=== PATIENT | female | born 2000 | race Caucasian/White ===

== ENCOUNTER 2024-12-19 04:11 | Emergency (ER) | payer MEDICAID, SELFPAY ==
[2024-12-19 04:14] VITALS: BMI 31.6
[2024-12-19 04:26] VITALS: BP 125/83; PULSE 141; RESP 20; TEMP 36.8; O2SAT 99
--- NOTE | 2024-12-19 04:33 | PD.EDRME ---
Rapid Medical Screening Exam RME Arrival date/time: 12/19/24 04:11 24-year-old female approximately 33 weeks presents emergency department complaining of generalized hives after taking new blood pressure medication metoprolol 25 mg yesterday at 10 PM. Chief Complaint: Allergic Reaction Vital signs: Vital Signs Temperature 98.2 F 12/19/24 04:26 Pulse Rate 141 H 12/19/24 04:26 Respiratory Rate 20 12/19/24 04:26 Blood Pressure 125/83 12/19/24 04:26 Pulse Oximetry (%) 99 12/19/24 04:26 Vital signs reviewed by provider: Yes
[2024-12-19] MEDS: FAMOTIDINE 20 MG TABLET 40 MG PO (04:52)
[2024-12-19] MEDS: DiphenhydrAMINE 25 MG CAPSULE 50 MG PO (04:52)
[2024-12-19 04:53] VITALS: BP 131/95; PULSE 131; RESP 16; O2SAT 98
--- NOTE | 2024-12-19 05:09 | PC.NURSE ---
Called OB and requested an NST per Dr. Blanco.
--- NOTE | 2024-12-19 05:19 | PD.EDALLER ---
ED Allergic Reaction RME/HPI General Chief complaint: Allergic Reaction Stated complaint: hives after new med metoprolol Time Seen by Provider: 12/19/24 05:08 Source: patient Arrival date/time: 12/19/24 04:11 Mode of arrival: ambulatory Limitations: no limitations RME / HPI RME / HPI narrative: 12/19/24 04:11 24-year-old female approximately 33 weeks presents emergency department complaining of generalized hives after taking new blood pressure medication metoprolol 25 mg yesterday at [address] Blanco?s Main ED Evaluation: 24-year-old female, approximately 33 weeks , presents to the Emergency Department for an allergic reaction. The reaction occurred after taking a new medication, metoprolol, around 11 PM. She reports developing an itchy rash and hives approximately one hour after administration. The patient denies any other complaints. Related Data Home Medications ?Medication ?Instructions ?Recorded ?Confirmed bcnynyaz-hpt-As-FA 1 mg 1 tab PO QDAY 01/02/22 02/20/23 tablet ferrous sulfate 325 mg (65 mg mg 02/19/23 iron) tablet (FeroSul) Previous Rx's ?Medication ?Instructions ?Recorded ibuprofen 600 mg tablet 600 mg PO Q6H PRN pain #30 tabs 02/21/23 epinephrine 0.3 mg/0.3 mL 0.3 ml subcut .once PRN 12/19/24 injection, auto-injector (EpiPen hypersensitivity reaction #2 ea 2-[place]) famotidine 20 mg tablet 20 mg PO BID #10 tabs 12/19/24 prednisone 50 mg tablet 50 mg PO QDAY #5 tabs 12/19/24 Allergies Allergy/AdvReac Type Severity Reaction Status Date / Time alisa Allergy Intermediate Hives Verified 12/19/24 04:20 banana Allergy Mild Gastrointestinal Verified 02/19/23 09:19 Upset mon Allergy Mild Gastrointestinal Verified 02/19/23 09:19 Upset Review of Systems Review of Systems Systems Reviewed: All systems reviewed, normal except as documented ED Exam Narrative Physical exam: GENERAL: In general the patient is awake, interactive, in an emergency department gurney. HEAD/EYES/EARS/NOSE/THROAT: normo-cephalic, atraumatic, mucus membranes are moist. No cervical tenderness palpation midline. Supple neck. Uvula midline, no swelling noted. CARDIOVASCULAR: tachycardic, no murmurs, heart sounds are not distant, strong pulses in all four extremities that are equal and symmetric bilateral upper and lower extremities, normal capillary refill. CHEST/PULMONARY: normal chest rise and fall, good air movement, clear to auscultation bilaterally, normal inspiratory to expiratory ratios without evidence of respiratory distress. ABDOMEN: gravid, soft, not tender, no masses appreciated BACK: normal range of motion without pain. NEUROLOGICAL: cranio-facial features are symmetric, moves all four extremities equally without obvious limitations or weakness. EXTREMITY: no tenderness to palpation over the long bones or large joints of the bilateral upper and lower extremities, no joint swelling, no joint erythema, no signs of trauma, no unilateral leg swelling and no peripheral edema. SKIN: warm, dry, well-perfused, no jaundice, no telangiectasias or petechia. Positive for itchy rash and hives to all extremities. PSYCH: calm, cooperative, no evidence of psychosis or agitation General Limitations: Present no limitations Course Quality Measures none Orders Category Date Time Status Place in Observation Status Routine Admission 12/19/24 05:16 Active Continuous Monitoring Routine Care 12/19/24 05:29 Ordered EKG (ED ONLY) *Do not use* NOW Care 12/19/24 04:33 Completed Non-Stress Test Now Care 12/19/24 05:29 Active Sterile Vaginal Exam PRN Care 12/19/24 05:30 Ordered EKG (ED Only) Stat Exams 12/19/24 04:33 Ordered CBC Stat Lab 12/19/24 04:50 Completed CMP [Comprehensive Metabolic Panel] Stat Lab 12/19/24 04:50 Completed Urinalysis, C/S if Indicated Stat Lab 12/19/24 06:54 Received DiphenhydrAMINE [Benadryl] Med 12/19/24 04:38 Discontinued 50 mg PO X1 ONE Famotidine [Pepcid] Med 12/19/24 04:38 Discontinued 40 mg PO X1 ONE MethylPREDNISolone.* [SoluMEDROL Inj] Med 12/19/24 05:34 Discontinued 125 mg IVP X1 ONE Sodium Chloride 0.9% 1000 ml [Ns] 1,000 ml Med 12/19/24 05:35 Discontinued IV 999 mls/hr Reevaluation(s) Reevaluation #1: 100 HR Time: 05:00 Reevaluation #2: Rash resolved. No Time: 07:53 Vital Signs Vital signs: Vital Signs Temperature 98.2 F 12/19/24 04:26 Pulse Rate 141 H 12/19/24 04:26 Respiratory Rate 20 12/19/24 04:26 Blood Pressure 125/83 12/19/24 04:26 Pulse Oximetry (%) 99 12/19/24 04:26 Allergic Reaction MDM Narrative MDM Narrative:: 0600 Care signed out to [facility] provider. Past medical, surgical, social and family history reviewed. Vitals and home medications reviewed. Results and treatment plan discussed. They will assume the care of the patient at this time and will follow the patient, pending workup, ED observation of her hives and final disposition to home. Scribe Attestation: Breonna Granados, am scribing for and in the presence of Dr. Blanco. Provider Notation: Although this document has been carefully reviewed, there may still be some phonetic and other typographical errors. These errors are purely grammatical due to imperfections in the software program and should not be construed in any way to compromise the substance of the patient's medical care during this visit. Patient data External records reviewed:: [facility] previous records Clinical information provided by:: patient Social determinants that could affect healthcare access:: none Patient has the following chronic illnesses:: see PMH How is presenting disease/condition affected by chronic disease/condition?: uneffected by Evaluation data The following diagnostics were reviewed and interpreted by me:: lab results Lab and/or radiology exams considered but not ordered:: none Interpretation Summary: workup pending Medications / Prescriptions Medications or Prescriptions considered but not ordered:: none Medication administrations:: Medication Administration History Discontinued Medications Diphenhydramine HCl (Diphenhydramine 25 Mg Capsule) 50 mg PO X1 ONE Stop: 12/19/24 04:39 Last Admin: 12/19/24 04:52 Dose: 50 mg Documented By: KG Famotidine (Famotidine 20 Mg Tablet) 40 mg PO X1 ONE Stop: 12/19/24 04:39 Last Admin: 12/19/24 04:52 Dose: 40 mg Documented By: KG Sodium Chloride (Ns) 1,000 mls @ 999 mls/hr IV .Q1H1M ONE Stop: 12/19/24 06:35 Last Infusion: 12/19/24 06:43 Dose: Infused Documented By: Admin: 12/19/24 05:42 Dose: 999 mls/hr Documented By: KG Methylprednisolone Sodium Succinate (Methylprednisolone Sod Succ 62.5 Mg/Ml 2ml Vial) 125 mg IVP X1 ONE Stop: 12/19/24 05:35 Last Admin: 12/19/24 05:41 Dose: 125 mg Documented By: KG as above Consultations Consultation(s) initiated? (list below): Yes Consultation #1 (Physician, Specialty, Details): OB came and seen the patient who cleared her Time: 05:00 Consultation #2 (Physician, Specialty, Details): Case d/w Dr. Terrell, ob on-call, made aware of the patient?s HPI, PMHx, lab and/or radiology results. Treatment plan was discussed. Cardiology placed her on 12mg for tachycardic not HTN, advised to stop. [place] monitor is normal. Agreeable to discharge her home with OB outpatient follow-up. Time: 05:54 Diagnosis Differential Diagnosis allergic reaction: anaphylaxis, allergic reaction and urticaria Most likely diagnosis given after review of the tests above:: see clinical impression Admission Indicated Admission indicated?: not indicated Admission Request Was there a request for admission?: No Disposition Plan Disposition Plan: Discharge Discharge Attestation Discharge Attestation: The patient and all family members were given an opportunity to ask questions and understood the discharge instructions. Discharge instructions specifically effects, indications for sooner follow up or return to the emergency department, and the expected course of current diagnosis. Patient condition: Stable Discharge Plan Plan Patient Disposition: HOME (Self Care) Patient condition on transfer: Stable Prescriptions/Referrals Prescriptions/Med Rec: New prednisone 50 mg tablet 50 mg PO QDAY Qty: 5 0RF famotidine 20 mg tablet 20 mg PO BID Qty: 10 0RF epinephrine [EpiPen 2-[place]] 0.3 mg/0.3 mL auto-injector 0.3 ml subcut .once PRN (Reason: hypersensitivity reaction) Qty: 2 0RF No Action eoyoklln-ffh-Xz-FA 1 mg Tablet 1 tab PO QDAY ferrous sulfate [FeroSul] 325 mg (65 mg iron) tablet Patient Comments: TAKE ONE TABLET BY MOUTH WITH ORANGE JUICE EVERY DAY VITAMIN ibuprofen 600 mg tablet 600 mg PO Q6H PRN (Reason: pain) Qty: 30 0RF Referrals: No Primary/Family,Physician [Primary Care Provider] - In 1 week Problem List Clinical Impression: Allergic reaction, 32 weeks gestation of Patient/Caregiver Discharge Instructions Education Materials: Duyen Abdullahi, ED General Allergic Reactions, Prematurity Additional Instructions: 1. I discussed your case with Dr Terrell, at this time I want you to stop the metoprolol. Please call his office today so that you can get an appointment to see him tomorrow. 2. Stay hydrated with Pedialyte and Gatorade. 3. Today in the emergency department you had a [place] monitor which monitored the baby and you clear that. 4. If you are prescribed medications from the emergency department please take them as prescribed. If you feel like you need to use the EpiPen please call 911. Return to the emergency department for worsening symptoms, any swelling of your face, difficulty swallowing, you feel like you are having any abdominal cramping, or you have any other concerns. Print Language: Maltese Stand Alone Forms: Nickie Award Info., Patient Portal Info Letter
--- NOTE | 2024-12-19 05:19 | PC.NURSE ---
OB at the bedside for NST.
[2024-12-19 05:30] VITALS: BP 129/83; PULSE 100; RESP 18; RESP 99; TEMP 36.8
[2024-12-19] MEDS: MethylPREDNISolone SOD SUCC 62.5 MG/ML 2ML VIAL 125 MG IVP (05:41)
[2024-12-19] MEDS: SODIUM CHLORIDE 0.9% 1000 ML 1,000 ML 999 ML IV (05:42)
[2024-12-19 05:51] LABS: Basophils % (Auto) 0 % (0-2.5); Eosinophils # (Auto) 0.1 Thou/mm3 (0.0-0.5); Eosinophils % (Auto) 1 % (0-10); Immature Granulocytes % (Auto) 2 % (0-0); Immature Granulocytes Auto 0.23 Thou/mm3 (0.00-0.00); Lymphocytes # (Auto) 1.5 Thou/mm3 (1.0-4.8); Lymphocytes % (Auto) 11 % (10-50); Mean Corpuscular HGB Conc 32.4 g/dl (31.0-37.0); Mean Corpuscular Hemoglobin 27.2 pg (25.0-35.0); Mean Corpuscular Volume 84 fL (80-100); Monocytes % (Auto) 8 % (0-12); Neutrophils % (Auto) 78 % (37-80); Nucleated Red Blood Cell % 0 /100 WBC (0); Platelet Count 312 Thou/mm3 (140-440); RDW Standard Deviation 45.8 fL (36.4-46.3); Red Blood Count 4.05 Miln/mm3 (4.00-5.20); White Blood Count 12.9 Thou/mm3 (3.6-11.0)
[2024-12-19 05:58] VITALS: BP 120/76; PULSE 121; RESP 18; TEMP 36.4; O2SAT 100
--- NOTE | 2024-12-19 06:28 | PC.NURSE ---
Dr. Blanco at the bedside.
[2024-12-19 06:31] LABS: Alanine Aminotransferase < 7 U/L (10-49); Albumin, Serum 4.4 gm/dL (3.5-5.0); Albumin/Globulin Ratio 1.3 (1.2-2.2); Alkaline Phosphatase 154 U/L (46-116); Anion Gap 11 (7-16); Aspartate Amino Transferase 10 U/L (0-34); BUN/Creatinine Ratio 18 Ratio (12-20); Bilirubin,Total 0.5 mg/dL (0.3-1.2); Blood Urea Nitrogen 9 mg/dL (9-23); Calcium 8.6 mg/dL (8.3-10.6); Calcium (Corrected) 8.6 mg/dL (8.5-10.1); Chloride 103 mMol/L (98-107); Creatinine (Component) 0.5 mg/dL (0.6-1.3); Estimated Creatinine Clearance 186.5 mL/min (>60); Globulin 3.3 gm/dL (2.3-3.5); Glucose 88 mg/dL (74-106); Osmolality,Calculated 267 (275-295); Potassium 3.7 mMol/L (3.4-5.1); Sodium 135 mMol/L (136-145); Total Protein 7.7 gm/dL (5.7-8.2); eGFR > 60 See Note
[2024-12-19 06:45] VITALS: BP 121/73; PULSE 113; RESP 19; O2SAT 99
[2024-12-19 07:05] LABS: Collection Type, Urine Clean Catch
[2024-12-19 07:22] LABS: Bacteria,Urine 1+; Bilirubin,Urine Negative (Negative); Blood,Urine Negative (Negative); Clarity,Urine Turbid (Clear/Hazy); Color,Urine Yellow (Lt Yel-Yel); Glucose, Urine Negative (Negative); Ketones,Urine 1+ (Negative); Leukocyte Esterase,Urine Positive (Negative); Nitrite,Urine Negative (Negative); Protein,Urine 1+ (Neg - Trace); RBC,Urine 13 /hpf (0-3); Specific Gravity,Urine 1.028 (1.001-1.035); Squamous Epithelial Cell,Urine 9 /hpf (0-5); WBC,Urine 12 /hpf (0-5)
[2024-12-19 07:56] VITALS: BP 121/73; PULSE 110; RESP 19; TEMP 36.6; O2SAT 98
[2024-12-19 08:56] LABS: Culture Indicated,Urine Yes
== END 2024-12-19 09:11 | disposition home or self-care (01) ==
PROVIDERS: Emergency Provider Emergency Medicine
DX: O9A.213 Injury, poisoning and certain other consequences of external causes complicating pregnancy, third trimester (principal); T78.40XA Allergy, unspecified, initial encounter; Z3A.33 33 weeks gestation of pregnancy
CPT/HCPCS: 36415; 80053; 81001; 85025; 87086; 96360; 99284; J2919; J7030; A9270

== ENCOUNTER 2025-01-21 19:14 | Observation (INO) | payer MEDICAID, SELFPAY ==
[2025-01-21 19:26] VITALS: PULSE 88; O2SAT 99
[2025-01-21 19:27] VITALS: BP 132/88; PULSE 103
[2025-01-21 19:31] VITALS: BP 132/88; PULSE 98; RESP 100; RESP 16; TEMP 36.8; BMI 33.9
[2025-01-21 19:52] LABS: ROM Kit Lot # 578010271; ROM Swab Mixed By: RAWLT; Swb Mxed in Solvent 1 min? Yes
[2025-01-21 20:02] LABS: Rupture of Fetal Membranes Negative (Negative)
== END 2025-01-21 20:20 | disposition home or self-care (01) ==
PROVIDERS: Admitting Provider Specialist; Visit Provider Specialist
DX: Z34.83 Encounter for supervision of other normal pregnancy, third trimester (principal); Z3A.38 38 weeks gestation of pregnancy
CPT/HCPCS: 59025; 59899; 84112

== ENCOUNTER 2025-01-27 17:13 | Inpatient (IN) | payer MEDICAID, SELFPAY ==
--- NOTE | 2025-01-25 12:22 | ESHP_ITS ---
RE: TORSTEN BRYANT : 2000 DATE OF ADMISSION: 01/27/2025 HISTORY OF PRESENT ILLNESS: This is a 25-year-old 4, para 2-0-1-2 with due date of 02/03/2025 with an intrauterine at 39 weeks on 01/27/2025, who presents for induction of labor. The patient's was complicated by chronic hypertension. She is taking labetalol at 100 mg p.o. b.i.d. She has also had tachycardia intermittently throughout her and hypothyroidism for which she takes levothyroxine 50 mcg p.o. daily. The patient did try metoprolol for her tachycardia and was found to have an allergic reaction and sent her to the emergency room, therefore we have avoided metoprolol for her tachycardia and use labetalol instead as well as for management of her hypertension. ALLERGIES: METOPROLOL. MEDICATIONS: 1. Labetalol 100 mg 1 p.o. b.i.d. 2. Albuterol sulfate inhaler 2 puffs every 6 hours p.r.n. shortness of breath and wheezing. 3. Ferrous sulfate 325 mg 1 p.o. daily. 4. Levothyroxine 50 mcg 1 p.o. daily. 5. Aspirin 81 mg 1 p.o. daily. 6. vitamin 1 p.o. daily. PAST MEDICAL HISTORY: Chronic hypertension, asthma, hypothyroidism, iron deficiency anemia. OBSTETRIC HISTORY: In 2020, 6-week spontaneous AB, no D and C; in 2021, 40-week normal vaginal delivery, 7 pounds 4 ounce male, induction for gestational hypertension; in 02/2023, 38-week normal vaginal delivery, induction for hypertension. SOCIAL HISTORY: She denies any alcohol, drug use, or smoking. PAST SURGICAL HISTORY: Denies. REVIEW OF SYSTEMS: She denies any chest pain, palpitations, cough, fever, shortness of breath, or lower extremity pain. She denies any headache, change in vision, or right upper quadrant pain. PHYSICAL EXAMINATION: VITAL SIGNS: Blood pressure 143/79, heart rate 88, respirations 18, temperature 98.2, and weight 205 pounds. HEENT: Oropharynx and sclerae are clear. LUNGS: Clear to auscultation bilaterally. HEART: Regular rate and rhythm. ABDOMEN: Gravid, term size consistent with estimated weight of 7.5 pounds. PELVIC: See RN notes. EXTREMITIES: Nontender. SKIN: No gross rashes or lesions. NEUROLOGIC: No focal deficit. ASSESSMENT AND PLAN: Intrauterine at 39 weeks on 01/27/2025, chronic hypertension, intermittent tachycardia, hypothyroidism, iron deficiency anemia, induction of labor, anticipate spontaneous vaginal delivery. Informed consent was obtained. The patient has been aware of the risks, complications, alternatives, and benefits of the proposed procedure and she agrees. She is aware of the risk of operative vaginal delivery and delivery and she agrees with these modes of delivery if indicated. DT: 09:53:54 TT: 10:36:00 Ref: [id number] - TID: [id number] MTDD
[2025-01-27] VITALS (19 sets, daily range): BP systolic 126–144; BP diastolic 85–86; PULSE 98–148; RESP 20; TEMP 37–37.1; O2SAT 97–100; BMI 34.2
[2025-01-27 18:22] LABS: Basophils % (Auto) 0 % (0-2.5); Eosinophils # (Auto) 0.1 Thou/mm3 (0.0-0.5); Eosinophils % (Auto) 1 % (0-10); Hematocrit 33.1 % (36.0-46.0); Hemoglobin 10.5 g/dL (12.0-16.0); Immature Granulocytes % (Auto) 2 % (0-0); Immature Granulocytes Auto 0.29 Thou/mm3 (0.00-0.00); Lymphocytes # (Auto) 2.1 Thou/mm3 (1.0-4.8); Lymphocytes % (Auto) 17 % (10-50); Mean Corpuscular HGB Conc 31.7 g/dl (31.0-37.0); Mean Corpuscular Hemoglobin 25.7 pg (25.0-35.0); Mean Corpuscular Volume 81 fL (80-100); Monocytes # (Auto) 0.8 Thou/mm3 (0.0-0.8); Monocytes % (Auto) 6 % (0-12); Neutrophils % (Auto) 73 % (37-80); Nucleated Red Blood Cell % 0 /100 WBC (0); Platelet Count 253 Thou/mm3 (140-440); RDW Standard Deviation 45.5 fL (36.4-46.3); Red Blood Count 4.08 Miln/mm3 (4.00-5.20); White Blood Count 12.3 Thou/mm3 (3.6-11.0)
[2025-01-27 18:33] LABS: Fibrinogen 478 mg/dL (175-375); INR 0.9 (0.9-1.3); Partial Thromboplastin Time 26.1 Seconds (22.0-36.0); Prothrombin Time 10.4 Seconds (9.0-12.2)
[2025-01-27 18:43] LABS: Alanine Aminotransferase 9 U/L (10-49); Albumin, Serum 3.9 gm/dL (3.5-5.0); Albumin/Globulin Ratio 1.3 (1.2-2.2); Alkaline Phosphatase 195 U/L (46-116); Anion Gap 12 (7-16); Aspartate Amino Transferase 12 U/L (0-34); BUN/Creatinine Ratio 17 Ratio (12-20); Bilirubin,Total 0.4 mg/dL (0.3-1.2); Blood Urea Nitrogen 10 mg/dL (9-23); Calcium 8.8 mg/dL (8.3-10.6); Calcium (Corrected) 8.9 mg/dL (8.5-10.1); Carbon Dioxide 19.8 mMol/L (20.0-31.0); Chloride 104 mMol/L (98-107); Creatinine (Component) 0.6 mg/dL (0.6-1.3); Estimated Creatinine Clearance 160.4 mL/min (>60); Globulin 2.9 gm/dL (2.3-3.5); Glucose 81 mg/dL (74-106); Osmolality,Calculated 269 (275-295); Sodium 136 mMol/L (136-145); Total Protein 6.8 gm/dL (5.7-8.2); Uric Acid 3.7 mg/dL (3.1-7.8); eGFR > 60 See Note
[2025-01-27 18:48] LABS: Syphilis Nonreactive (Nonreactive)
[2025-01-27] MEDS: DINOPROSTONE 10 MG VAG.SUPP VAGINAL (19:22)
[2025-01-27 19:46] LABS: Collection Type, Urine Clean Catch
[2025-01-27 20:32] LABS: Bacteria,Urine 1+; Bilirubin,Urine Negative (Negative); Blood,Urine Trace (Negative); Clarity,Urine Turbid (Clear/Hazy); Color,Urine Yellow (Lt Yel-Yel); Glucose, Urine Negative (Negative); Ketones,Urine 1+ (Negative); Leukocyte Esterase,Urine Positive (Negative); Nitrite,Urine Negative (Negative); PH,Urine 5.5 (5.0-7.0); Protein,Urine Trace (Neg - Trace); RBC,Urine 22 /hpf (0-3); Squamous Epithelial Cell,Urine 6 /hpf (0-5); Urobilinogen,Urine Negative mg/dL (0.0-1.0); WBC,Urine 44 /hpf (0-5)
[2025-01-27 20:49] LABS: Amphetamine/Metham Scrn,Ur OB Negative (Negative); Benzoylecgonine Screen, Ur OB Negative (Negative); Opiate Screen,Urine OB Negative (Negative); THC Screen,Urine OB Negative (Negative)
[2025-01-28] VITALS (23 sets, daily range): BP systolic 109–143; BP diastolic 57–92; PULSE 77–112; RESP 17–20; TEMP 36.5–36.8; O2SAT 97–98
[2025-01-28] MEDS: LEVOTHYROXINE SODIUM 25 MCG TABLET 50 MCG PO (05:28)
[2025-01-28] MEDS: RINGERS LACTATED 1000 ML 1,000 ML 100 ML IV (05:45)
--- NOTE | 2025-01-28 05:52 | PD.LDPN ---
Documentation for date of: 01/28/25 OB Labor Progress Note Pain Control Comments: None Pelvic Exam Dilation (cm): 3 Effacement (%): 70 station: -2 Amniotic membrane status: Intact Comments: vtx per RN Contractions Contraction frequency: q 3 min Status Comments: Category 1 Assessment and Plan Comments: Anticpate Feels like not able to completely empty bladder. Voided 100 cc only. Bladder scan showed 250 cc retained urine. Urinary retention Plan straight cath x 1
[2025-01-28] MEDS: OXYTOCIN in NS 20 units 20 UNIT/1,000 ML BAG 125 UNIT IV (07:42)
[2025-01-28] MEDS: IBUPROFEN TAB 400 MG TABLET 800 MG PO ×2 (08:03→23:22)
[2025-01-28] MEDS: BENZO/LANO/ALOE (Dermoplast) 60 GM CAN 1 SPRAY TOP (08:04)
--- NOTE | 2025-01-28 08:05 | PD.LDDELS ---
Data ([facility]) Data Hx Section: No : 3 Para: 2 Term: 2 : 0 : 0 Delivery Data ([facility]) Labor Data ROM Date: 01/28/25 ROM Time: 06:20 Rupture Type: SROM Amniotic Fluid: Particulate Meconium Delivery Data EDC: 02/03/25 EDC calculated by:: LMP/early US confirmation Labor Onset Stage 1 Date: 01/28/25 Labor Onset Stage 1 Time: 06:20 Labor Onset Stage 2 Date: 01/28/25 Labor Onset Stage 2 Time: 07:34 Delivery Date: 01/28/25 Delivery Time: 07:39 Gestational age (weeks): 39 Gestational age (days): 1 Placenta Delivery Date: 01/28/25 Placenta Delivery Time: 07:42 Delivered by: John Terrell Delivery nurse: Romina Best Other staff at delivery: 2nd Nurse Other staff at delivery: 2nd Nurse Other staff at delivery: 2nd Nurse Other staff at delivery: Obdulia Maddox Other staff at delivery: Gaby Caruso Other staff at delivery: astoaEmery Delivery Method Delivery: Vaginal Delivery Type: Spontaneous Presentation: Vertex Position: OA Anesthesia Type Primary Anesthesia: None Placenta Placenta Delivery: Spontaneous Placenta Cultures Obtained: No Placenta Sent for Examination: No Cord Sample: Cord Blood Obtained, Cord Gases Arterial and Cord Gases Venous EBL Estimated blood loss (ml): 250 Umbilical Cord Nuchal Cord: x1 Additional Procedures None Complications Complications: None [place] Data ([facility]) [place] Data Gender: Female Weight Grams: 3410 1 Minute Total: 7 5 Minute Total: 9
--- NOTE | 2025-01-28 08:06 | ESDS_ITS ---
DS: Providers Provider Date of admission: 01/27/25 17:13 Primary care physician: Milo Faulkner MD Admitting Provider: John Terrell MD Attending Provider on Admission: John Terrell MD Attending Provider on DC: John Terrell MD Discharging Provider: John Terrell MD DS: Diagnosis Problem List Completed Was Problem List Reviewed/Reconciled?: Yes Summary/Hosp Course Time Spent with Patient Time attestation: Total time spent providing and/or coordinating discharge services: Exam Vital Signs Temp Pulse Resp BP Pulse Ox 97.8 F 84 19 127/75 98 01/28/25 01:19 01/28/25 07:58 01/28/25 01:19 01/28/25 07:58 01/27/25 19:28 Discharge Plan Plan Patient Disposition: HOME (Self Care) Patient condition on transfer: Stable Prescriptions/Referrals Prescriptions/Med Rec: New ibuprofen 600 mg tablet 600 mg PO Q6H PRN (Reason: fever or pain) Qty: 30 0RF nitrofurantoin monohyd/m-cryst [Macrobid] 100 mg capsule 100 mg PO Q12H 3 Days Qty: 6 0RF Rx Instructions: must administer with a meal/food Continued levothyroxine 50 mcg tablet Patient Comments: TAKE ONE TABLET BY MOUTH EVERY MORNING FOR THYROID Vitamin 27 mg iron- 800 mcg tablet Patient Comments: TAKE ONE TABLET BY MOUTH EVERY DAY VITAMIN epinephrine [EpiPen 2-[place]] 0.3 mg/0.3 mL auto-injector 0.3 ml subcut .once PRN (Reason: hypersensitivity reaction) Qty: 2 0RF ferrous sulfate [FeroSul] 325 mg (65 mg iron) tablet Patient Comments: TAKE ONE TABLET BY MOUTH WITH ORANGE JUICE EVERY DAY VITAMIN Discontinued aeibkbox-jfn-Rd-FA 1 mg Tablet 1 tab PO QDAY famotidine 20 mg tablet 20 mg PO BID Qty: 10 0RF ibuprofen 600 mg tablet 600 mg PO Q6H PRN (Reason: pain) Qty: 30 0RF Referrals: Milo Faulkner MD [Primary Care Provider] - Patient/Caregiver Discharge Instructions Discharge Activity: activity as tolerated Other Discharge Activity Instructions:: Follow up office 6 weeks Education Materials: After a Vaginal , Urinary Tract Infections in Women, Print Language: Mongolian Stand Alone Forms: Nickie Award Info., Patient Portal Info Letter Discharge Order Discharge Orders: Discharge (Routine); Ordered 01/29/25 Ordered By: John Terrell Planned Discharge Date 01/29/25
[2025-01-28] MEDS: cefTRIAXone 1,000 MG in SODIUM CHLORIDE 0.9% (Popper) 50 ML 100 MG IV (08:47)
[2025-01-28] MEDS: PRENATAL VITAMIN/FE FUM/FA TABLET 1 TAB PO (08:47)
[2025-01-28 14:23] LABS: Basophils % (Auto) 0 % (0-2.5); Eosinophils % (Auto) 0 % (0-10); Hematocrit 29.9 % (36.0-46.0); Hemoglobin 9.5 g/dL (12.0-16.0); Immature Granulocytes % (Auto) 1 % (0-0); Immature Granulocytes Auto 0.15 Thou/mm3 (0.00-0.00); Lymphocytes # (Auto) 1.9 Thou/mm3 (1.0-4.8); Lymphocytes % (Auto) 12 % (10-50); Mean Corpuscular HGB Conc 31.8 g/dl (31.0-37.0); Mean Corpuscular Hemoglobin 26.2 pg (25.0-35.0); Mean Corpuscular Volume 83 fL (80-100); Monocytes # (Auto) 1.3 Thou/mm3 (0.0-0.8); Monocytes % (Auto) 8 % (0-12); Neutrophils % (Auto) 79 % (37-80); Nucleated Red Blood Cell % 0 /100 WBC (0); Platelet Count 228 Thou/mm3 (140-440); RDW Standard Deviation 46.9 fL (36.4-46.3); Red Blood Count 3.62 Miln/mm3 (4.00-5.20); White Blood Count 16.4 Thou/mm3 (3.6-11.0)
[2025-01-29 04:01] VITALS: BP 136/81; PULSE 88; RESP 16; TEMP 36.4; O2SAT 98
[2025-01-29] MEDS: LEVOTHYROXINE SODIUM 25 MCG TABLET 50 MCG PO (05:00)
--- NOTE | 2025-01-29 08:16 | ESPR_ITS ---
RE: TORSTEN BRYANT : 2000 DATE OF SERVICE: 01/29/2025 SUBJECTIVE: day #1. The patient denies any problem or complaints. She is voiding. She is ambulating. She is tolerating diet. She is passing flatus. She denies any excessive vaginal bleeding. She denies any dizziness or lightheadedness. She denies any chest pain, palpitations, shortness of breath or lower extremity pain. She denies any flank pain. OBJECTIVE: Vital Signs: Blood pressure 136/81, heart rate 88, respirations 16, temperature 97.5, pulse oximetry is 98% on room air. Lungs: Clear to auscultation bilaterally. Heart: Regular rate and rhythm. Abdomen: Fundus is firm, nontender. Flank: No CVA tenderness. Extremities: Nontender. LABORATORY DATA: Hemoglobin pre-delivery is 10.5, post delivery is 9.5. ASSESSMENT: 1. day #1, status post spontaneous vaginal delivery. 2. Urinary tract infection. PLAN: Discharge home. Continue antibiotics for 3 days. Discharge instructions given. Follow up in the office in 6 weeks. DT: 07:36:38 TT: 08:15:00 Ref: [id number] - TID: [id number] [facility]
== END 2025-01-29 11:59 | disposition home or self-care (01) | DRG 560 ==
LOC: S4SX 01-28 08:01 → S4NX 01-28 09:55
PROVIDERS: Admitting Provider Specialist; PCP Pediatrics; Visit Provider Specialist
DX: O10.92 Unspecified pre-existing hypertension complicating childbirth (principal); Z3A.39 39 weeks gestation of pregnancy; Z37.0 Single live birth; O69.81X0 Labor and delivery complicated by cord around neck, without compression, not applicable or unspecified; O99.284 Endocrine, nutritional and metabolic diseases complicating childbirth; E03.9 Hypothyroidism, unspecified; O99.02 Anemia complicating childbirth; D50.9 Iron deficiency anemia, unspecified; O77.0 Labor and delivery complicated by meconium in amniotic fluid; O86.20 Urinary tract infection following delivery, unspecified; Z79.890 Hormone replacement therapy
CPT/HCPCS: 36415; 80053; 80307; 81001; 84550; 85025; 85384; 85610; 85730; 86780; 86850; 86900; 86901; J0696; J2590; J7050; J7120; A9270

== ENCOUNTER 2025-08-14 23:59 | Emergency (ER) | payer MEDICAID, SELFPAY ==
[2025-08-15] VITALS: BMI 29.9
[2025-08-15 00:09] VITALS: BP 133/89; PULSE 88; RESP 18; TEMP 36.9; O2SAT 98
--- NOTE | 2025-08-15 00:09 | EKG_ITS ---
[facility] Test Date: 2025-08-15 Pat Name: TORSTEN BRYANT Department: Room: - Gender: Female Recruiter Specialist: : 2000 Requested By: ED Temporary Provider Order Number: [id number] Reading MD: ED Temporary Provider Measurements Intervals [place] Rate: 91 P: 64 VT: 138 QRS: 75 QRSD: 93 T: 66 QT: 373 QTc: 459 Interpretive Statements SINUS RHYTHM WITH FREQUENT VENTRICULAR PREMATURE COMPLEXES ABNORMAL RHYTHM ECG No previous ECG available for comparison /store/S0/[id number]/ecg/[id number].pdf
--- NOTE | 2025-08-15 00:23 | PD.EDRME ---
Rapid Medical Screening Exam RME Arrival date/time: 08/14/25 23:59 Chief Complaint: Chest Pain Vital signs: Vital Signs Temperature 98.5 F 08/15/25 00:09 Pulse Rate 88 08/15/25 00:09 Respiratory Rate 18 08/15/25 00:09 Blood Pressure 133/89 H 08/15/25 00:09 Pulse Oximetry (%) 98 08/15/25 00:09 Oxygen Delivery Method Room Air 08/15/25 00:09 Pulse ox room air is 98% Vital signs reviewed by provider: Yes RME Narrative: 25-year-old female presents to ED with complaint of heart palpitations x 1 hour. Also complains of chest pain she describes worse than normal. Patient has had heart palpitations since she was 14 years of age. Also describes shortness of breath.
--- NOTE | 2025-08-15 00:25 | XR_ITS ---
Examination: PA lateral chest 2 views Technique: Upright PA lateral chest 2 views Date and time: August 15, 2025, 0032 hrs. Indications: Chest pain shortness of breath cardiac palpitations beginning one hour ago Findings: Normal heart size. Lungs are clear. The osseous structures are intact Impression: No active disease
[2025-08-15 00:43] LABS: Basophils # (Auto) 0.0 Thou/mm3 (0.0-0.2); Basophils % (Auto) 1 % (0-2.5); Eosinophils # (Auto) 0.5 Thou/mm3 (0.0-0.5); Eosinophils % (Auto) 8 % (0-10); Hematocrit 41.0 % (36.0-46.0); Hemoglobin 13.5 g/dL (12.0-16.0); Immature Granulocytes Auto 0.01 Thou/mm3 (0.00-0.00); Lymphocytes # (Auto) 1.0 Thou/mm3 (1.0-4.8); Lymphocytes % (Auto) 15 % (10-50); Mean Corpuscular HGB Conc 32.9 g/dl (31.0-37.0); Mean Corpuscular Hemoglobin 28.3 pg (25.0-35.0); Mean Corpuscular Volume 86 fL (80-100); Monocytes # (Auto) 0.4 Thou/mm3 (0.0-0.8); Monocytes % (Auto) 6 % (0-12); Neutrophils # (Auto) 4.5 Thou/mm3 (1.8-7.7); Neutrophils % (Auto) 70 % (37-80); Nucleated Red Blood Cell # 0.00 Thou/mm3 (0.00-0.00); Nucleated Red Blood Cell % 0 /100 WBC (0); Platelet Count 236 Thou/mm3 (140-440); RDW Standard Deviation 39.9 fL (36.4-46.3); Red Blood Count 4.77 Miln/mm3 (4.00-5.20); White Blood Count 6.4 Thou/mm3 (3.6-11.0)
[2025-08-15 00:55] LABS: Collection Type, Urine Clean Catch
[2025-08-15 00:58] LABS: B-Type Natriuretic Peptide < 20 pg/mL (0-100)
[2025-08-15 01:00] LABS: Alanine Aminotransferase 17 U/L (10-49); Albumin, Serum 5.1 gm/dL (3.5-5.0); Albumin/Globulin Ratio 2.0 (1.2-2.2); Alkaline Phosphatase 128 U/L (46-116); Anion Gap 11 (7-16); Aspartate Amino Transferase 17 U/L (0-34); BUN/Creatinine Ratio 16 Ratio (12-20); Bilirubin,Total 0.4 mg/dL (0.3-1.2); Blood Urea Nitrogen 14 mg/dL (9-23); Calcium 10.0 mg/dL (8.3-10.6); Calcium (Corrected) 10.0 mg/dL (8.5-10.1); Carbon Dioxide 25.5 mMol/L (20.0-31.0); Chloride 105 mMol/L (98-107); Creatinine (Component) 0.9 mg/dL (0.6-1.3); Estimated Creatinine Clearance 100.0 mL/min (>60); Globulin 2.6 gm/dL (2.3-3.5); Glucose 89 mg/dL (74-106); LDH (Lactate Dehydrogenase) 133 U/L (120-246); Magnesium 1.9 mg/dL (1.6-2.6); Osmolality,Calculated 280 (275-295); Potassium 3.6 mMol/L (3.4-5.1); Sodium 141 mMol/L (136-145); Total Protein 7.7 gm/dL (5.7-8.2); Troponin I < 0.002 ng/mL (0.0-0.045); eGFR > 60 See Note
[2025-08-15 01:06] LABS: INR 1.0 (0.9-1.3); Partial Thromboplastin Time 32.8 Seconds (22.0-36.0); Prothrombin Time 10.8 Seconds (9.0-12.2)
[2025-08-15 01:12] LABS: Bilirubin,Urine Negative (Negative); Blood,Urine Negative (Negative); Clarity,Urine Turbid (Clear/Hazy); Color,Urine Yellow (Lt Yel-Yel); Culture Indicated,Urine Contaminated; Glucose, Urine Negative (Negative); Ketones,Urine 1+ (Negative); Leukocyte Esterase,Urine Positive (Negative); Nitrite,Urine Negative (Negative); PH,Urine 6.0 (5.0-7.0); Protein,Urine 1+ (Neg - Trace); RBC,Urine 6 /hpf (0-3); Specific Gravity,Urine 1.046 (1.001-1.035); Squamous Epithelial Cell,Urine 42 /hpf (0-5); Urobilinogen,Urine 3.0 mg/dL (0.0-1.0); WBC,Urine 27 /hpf (0-5)
[2025-08-15 01:14] LABS: Amphetamine/Methamp Scrn,U Negative (Negative); Barbiturate Screen,Urine Negative (Negative); Benzodiazepines Screen,Urine Negative (Negative); Benzoylecgonine Screen, Ur Negative (Negative); Fentanyl Screen,Urine Negative (Negative); Opiate Screen,Urine Negative (Negative); THC Screen,Urine Negative (Negative)
[2025-08-15 02:53] VITALS: BP 124/82; PULSE 89; RESP 16; TEMP 36.7; O2SAT 100
--- NOTE | 2025-08-15 02:58 | PD.EDCHEST ---
ED Chest Pain RME/HPI General Chief Complaint: Chest Pain Stated Complaint: CHEST PAIN, SOB, DIZZY Time Seen by Provider: 08/15/25 02:51 Source: patient Arrival date/time: 08/14/25 23:59 Mode of arrival: ambulatory Limitations: no limitations RME / HPI RME / HPI narrative: 25-year-old female presents to ED with complaint of heart palpitations x 1 hour. Also complains of chest pain she describes worse than normal. Patient has had heart palpitations since she was 14 years of age. Also describes shortness of breath. MD complaint: chest pain Onset (ago): year(s) (Since she was 14 years old.) Duration: constant Onset: during rest and during exertion Pain location: left chest Severity: moderate Severity scale (1-10): 5 Quality: aching Pain radiation: none Relieving factors: nothing Exacerbating factors: nothing Context: recent illness Associated symptoms: nausea Treatments prior to arrival chest pain: none Related Data Home Medications ?Medication ?Instructions ?Recorded ?Confirmed ferrous sulfate 325 mg (65 mg mg 02/19/23 iron) tablet (FeroSul) levothyroxine 50 mcg tablet mcg 01/27/25 vits no.130-ferrous fum tab 01/27/25 27 mg iron-folic acid 800 mcg tablet ( Vitamin) Previous Rx's ?Medication ?Instructions ?Recorded epinephrine 0.3 mg/0.3 mL 0.3 ml subcut .once PRN 12/19/24 injection, auto-injector (EpiPen hypersensitivity reaction #2 ea 2-[place]) ibuprofen 600 mg tablet 600 mg PO Q6H PRN fever or pain 01/28/25 #30 tabs cephalexin 500 mg capsule 500 mg PO TID #30 caps 08/15/25 Allergies Allergy/AdvReac Type Severity Reaction Status Date / Time alisa Allergy Intermediate Hives Verified 01/21/25 19:23 banana Allergy Mild Gastrointestinal Verified 01/21/25 19:23 Upset mon Allergy Mild Gastrointestinal Verified 01/21/25 19:23 Upset metoprolol Allergy Hives Verified 01/21/25 19:23 ED Exam Narrative Physical exam: Patient is in no apparent distress General Limitations: Present no limitations General appearance: Present alert and in no apparent distress Head Head exam: Present atraumatic Eye Eye exam: Present normal appearance and EOMI ENT ENT exam: Present normal exam, normal oropharynx and mucous membranes moist Neck Neck exam: Present normal inspection, full ROM and trachea midline Chest Chest inspection: Present normal inspection and symmetric chest wall rise Respiratory Respiratory exam: Present normal lung sounds bilaterally Cardiovascular Cardiovascular exam: Present regular rate, normal rhythm and normal heart sounds Abdominal Exam Abdominal exam: Present soft and normal bowel sounds Rectal Exam Rectal exam: Present deferred Extremities Exam Extremities exam: Present normal inspection and full ROM Back Exam Back exam: Present normal inspection and full ROM Neurological Exam Neurological exam: Present alert and oriented X3 Psychiatric Psychiatric exam: Present normal affect and normal mood Skin Skin exam: Present warm, dry, intact and normal color Course Course Course Narrative: Patient will have a EKG, chest x-ray, BMP, CBC, CMP, LDH, PT, PTT, troponin and a UA. Quality Measures none (NA) Orders Category Date Time Status EKG (ED ONLY) *Do not use* NOW Care 08/15/25 00:09 Completed EKG (ED Only) Stat Exams 08/15/25 00:09 Draft XR chest 2V Stat Exams 08/15/25 00:25 Taken B-Type Natriuretic Peptide Stat Lab 08/15/25 00:28 Completed CBC Stat Lab 08/15/25 00:28 Completed Comprehensive Metabolic Panel Stat Lab 08/15/25 00:28 Completed Drug Screen,Urine Stat Lab 08/15/25 00:50 Completed LDH (Lactate Dehydrogenase) Stat Lab 08/15/25 00:28 Completed Magnesium Stat Lab 08/15/25 00:28 Completed Partial Thromboplastin Time Stat Lab 08/15/25 00:28 Completed Prothrombin Time with INR Stat Lab 08/15/25 00:28 Completed Troponin I Stat Lab 08/15/25 00:28 Completed Urinalysis, C/S if Indicated Stat Lab 08/15/25 00:50 Completed NA Vital Signs Vital signs: Vital Signs Temperature 98.5 F 08/15/25 00:09 Pulse Rate 88 08/15/25 00:09 Respiratory Rate 18 08/15/25 00:09 Blood Pressure 133/89 H 08/15/25 00:09 Pulse Oximetry (%) 98 08/15/25 00:09 Oxygen Delivery Method Room Air 08/15/25 00:09 pulse ox is 98% room air Chest Pain MDM Narrative MDM Narrative:: Patient will be discharged in no apparent distress and she is to primary care physician for follow-up to today's visit. Patient data External records reviewed:: Other (specify) Clinical information provided by:: patient Social determinants that could affect healthcare access:: none (NA) Patient has the following chronic illnesses:: Palpitations How is presenting disease/condition affected by chronic disease/condition?: no chronic disease Evaluation data The following diagnostics were reviewed and interpreted by me:: lab results and radiology exam(s) Lab and/or radiology exams considered but not ordered:: NA Interpretation Summary: NA Medications / Prescriptions Medications or Prescriptions considered but not ordered:: NA Medication administrations:: NA Consultations Consultation(s) initiated? (list below): No Diagnosis Chest Pain Differential Diagnosis: fracture of rib, stable angina, unstable angina pectoris, atypical chest pain, costochondritis and chest pain Most likely diagnosis given after review of the tests above:: PALPITATIONS Admission Indicated Admission indicated?: not indicated Explain why admission is indicated or not indicated:: NA Admission Request Was there a request for admission?: No Disposition Plan Disposition Plan: Discharge Discharge Attestation Discharge Attestation: The patient and all family members were given an opportunity to ask questions and understood the discharge instructions. Discharge instructions specifically effects, indications for sooner follow up or return to the emergency department, and the expected course of current diagnosis. Patient condition: Stable Discharge Plan Plan Patient Disposition: HOME (Self Care) Discharge Disposition comment: Patient discharged in no apparent distress Patient condition on transfer: Stable Prescriptions/Referrals Prescriptions/Med Rec: New cephalexin 500 mg capsule 500 mg PO TID Qty: 30 0RF No Action levothyroxine 50 mcg tablet Patient Comments: TAKE ONE TABLET BY MOUTH EVERY MORNING FOR THYROID Vitamin 27 mg iron- 800 mcg tablet Patient Comments: TAKE ONE TABLET BY MOUTH EVERY DAY VITAMIN ibuprofen 600 mg tablet 600 mg PO Q6H PRN (Reason: fever or pain) Qty: 30 0RF epinephrine [EpiPen 2-[place]] 0.3 mg/0.3 mL auto-injector 0.3 ml subcut .once PRN (Reason: hypersensitivity reaction) Qty: 2 0RF ferrous sulfate [FeroSul] 325 mg (65 mg iron) tablet Patient Comments: TAKE ONE TABLET BY MOUTH WITH ORANGE JUICE EVERY DAY VITAMIN Referrals: No Primary/Family,Physician [Primary Care Provider] - In 1 week Problem List Clinical Impression: Heart palpitations, UTI (urinary tract infection) Patient/Caregiver Discharge Instructions Print Language: Slovenian Stand Alone Forms: Nickie Award Info., Patient Portal Info Letter
== END 2025-08-15 03:18 | disposition home or self-care (01) ==
PROVIDERS: Physician Assistant; Emergency Provider Emergency Medicine
DX: R00.2 Palpitations (principal); N39.0 Urinary tract infection, site not specified; I49.3 Ventricular premature depolarization
CPT/HCPCS: 36415; 71046; 80053; 80307; 81001; 83615; 83735; 83880; 84484; 85025; 85610; 85730; 93005; 99283